=== PATIENT | female | born 1955 | race Caucasian/White ===

== ENCOUNTER 2017-12-24 09:31 | Day surgery (SDC) | payer BC ==
[2017-12-20 11:21] VITALS: BMI 34.9
[~2017-12-24 09:31] MED LIST: LACTATED RINGERS 1,000 ML IV SCH
--- NOTE | 2017-12-24 11:48 | CT ---
EXAMINATION TYPE: CT Chest ramila Ralph Protocol DATE OF EXAM: 12/24/2017 COMPARISON: NONE HISTORY: Bronchial navigation. CT DLP: 523 mGycm Automated exposure control for dose reduction was used. FINDINGS: Exam is performed for bronchial navigation. Subpleural nodularity and apical pleural thickening are noted. There are numerous bilateral pulmonary nodules ranging in size from 2 mm to 1 cm throughout both lungs in all lobes. Areas of subsegmental consolidation are seen along the periphery of both upper lobes. Prominence the right hilum could reflect a degree of adenopathy although exam is limited due to lack of contrast. More confluent areas of consolidation or mass are seen in the perihilar regions bilatera lly. No pleural effusion or pneumothorax. Atherosclerotic change aorta. Heterogeneous appearance to the thyroid. Hypertrophic and degenerative change of the spine noted. IMPRESSION: MULTIPLE BILATERAL PULMONARY NODULES THE LARGEST MEASURING 1 CM WITHIN THE LEFT UPPER LOBE. CORRELATE FOR HISTORY OF MALIGNANCY OR POSSIBLY SARCOIDOSIS. MORE CONFLUENT CONSOLIDATION IN THE PERIHILAR REG IONS ARE SEEN BILATERALLY MAY BE POSTINFLAMMATORY OR INFECTIOUS ALTHOUGH NEOPLASTIC PROCESS NOT EXCLU DED. THERE IS A LIMITED ASSESSMENT FOR ADENOPATHY DUE TO TECHNIQUE AND LACK OF CONTRAST.
[2017-12-24] MEDS ORDERED: PROPOFOL 10 MG/ML 20 ML VIAL IV ONE (12:27)
[2017-12-24] MEDS ORDERED: GLYCOPYRROLATE 0.2 MG/ML 2 ML VIAL ONE (12:27)
[2017-12-24] MEDS ORDERED: NEOSTIGMINE 1 MG/ML 10 ML VIAL ONE (12:27)
[2017-12-24] MEDS ORDERED: ROCURONIUM BROMIDE 10 MG/ML 10 ML VIAL IV ONE (12:27)
[2017-12-24] MEDS ORDERED: LIDOCAINE 1% INJ 10MG/ML (20 ML MDV) ONE (12:27)
[2017-12-24] MEDS ORDERED: fentaNYL (PF) 50 MCG/ML 2 ML AMP ONE (12:27)
[2017-12-24] MEDS ORDERED: MIDAZOLAM 2 MG/2 ML VIAL ONE (12:27)
[2017-12-24] MEDS ORDERED: SUCCINYLCHOLINE CHLORIDE 100 MG/5 ML SYR IV ONE (12:27)
--- NOTE | 2017-12-24 13:08 | P.PCN ---
Date of Procedure: 12/24/17 Preoperative Diagnosis: Bilateral pulmonary infiltrates Postoperative Diagnosis: Same Procedure(s) Performed: Navigation bronchoscopy, flexible bronchoscopy, bronchoalveolar lavage, transbronchial biopsy, transbronchial brushings Anesthesia: JUSTINA Surgeon: Anita Hogan Treating Machine Operator #1: Celena Montano Estimated Blood Loss (ml): 0 Pathology: other Condition: stable Disposition: same day Operative Findings: This procedure was done in the operating room under general anesthesia. The patient had a preoperative CAT scan of the chest for planning and mapping the bilateral pulmonary nodules. After the CAT scan was completed, the images were reviewed and was noted that the most of the abnormal changes are in the left upper lobe and lingular segments. Based on that, the appropriate mapping was done and all of this information was loaded into the [employer] navigational system. The patient was brought into the operating room. The patient was intubated by the usual fashion. HARNESS CUTTER was involved in a intubation. After achieving adequate analgesia and anesthesia, and after the patient being intubated, an adapter was attached to the orotracheal tube and as the patient being oxygenated and ventilated a flexible bronchoscopy was done. The airways but she was completed and the trachea including the distal trachea, bilateral mainstem bronchi, examination of the right side of the left side including the right upper lobe bronchus regular lobe bronchus and right lower lobe bronchus and the left upper lobe bronchus and the left lower bronchus along with various segments and subsegments were all within normal limits. No respiratory secretions encountered. Following that, appropriate calibration was done using the primary kala and the secondary kala and the left upper lobe and the right upper lobe as references. Using the navigational system, the Lexapro bronchoscope was guided into the left upper lobe and transbronchial biopsies of the left upper lobe anterior and apical segments were done. Also biopsies of the lingular segment was done. Following that, a transbronchial brushing of the lingular pulmonary treatments were done. A bronchial lavage was completed with total of 80 mL of fluid was infused and 25 mL's was suctioned back. The procedure was complicated without any complications. No bleeding encountered. The patient will be extubated and the patient be transferred recovery in stable condition. Chest x-ray be done to rule out pneumothorax and if things are stable and the patient was discharged home today to be followed up with me in the office to discuss the results.
[2017-12-24] MEDS ORDERED: IV FLUID CONTINUATION 1,000 ML IV ONE (13:18)
[2017-12-24 13:34] VITALS: TEMP 97.4
[2017-12-24 14:14] VITALS: RESP 16
--- NOTE | 2017-12-24 14:31 | XR ---
EXAMINATION TYPE: XR chest 1V DATE OF EXAM: 12/24/2017 COMPARISON: CT same day HISTORY: 62-year-old female post bronchoscopic lung biopsy TECHNIQUE: Single frontal view of the chest is obtained. FINDINGS: Heart upper limits of normal in size. Multifocal nodular and perihilar infiltrates are present throug hout correlating with findings on CT of the same day. No pneumothorax or pleural effusion. IMPRESSION: Multifocal nodular and perihilar infiltrates corresponding to findings on CT of the same day. No pneu mothorax or pleural effusion.
[2017-12-24 14:43] VITALS: PULSE 80
[2017-12-24 15:07] VITALS: BP 124/84
== END 2017-12-24 15:18 | disposition home or self-care (01) ==
LOC: ORWHC2ENDO 09:31
PROVIDERS: ATTEND Internal Medicine Critical Care Medicine
DX: J98.4 Other disorders of lung (principal); E78.5 Hyperlipidemia, unspecified; F41.8 Other specified anxiety disorders; M19.90 Unspecified osteoarthritis, unspecified site; E66.9 Obesity, unspecified; Z83.6 Family history of other diseases of the respiratory system; Z96.652 Presence of left artificial knee joint; Z87.01 Personal history of pneumonia (recurrent); Z79.82 Long term (current) use of aspirin; Z79.1 Long term (current) use of non-steroidal anti-inflammatories (NSAID); Z88.1 Allergy status to other antibiotic agents; Z79.899 Other long term (current) drug therapy; Z91.048 Other nonmedicinal substance allergy status; R91.8 Other nonspecific abnormal finding of lung field; G47.33 Obstructive sleep apnea (adult) (pediatric); Z79.890 Hormone replacement therapy
CPT/HCPCS: 87798 ×3; 87496; 87498; 87529; 88104; 88108; 88305; 87252; 87502; 87634; 87070; 87205; 87116; 87102; 87206; 71045; 71250; 31624; 31627; 31628; 31623; J2250; J2710; J2001; J3010; J0330; J2704; 31625

== ENCOUNTER → 2024-12-12 | Outpatient (CLI) | payer MEDICARE ==
[2024-12-12 08:20] LABS: African American GFR (CKD) 70 (>60 ml/min/1.73 sqM); Blood Urea Nitrogen 26 mg/dL (7-17); Non-African American GFR(CKD) 61 (>60 ml/min/1.73 sqM)
--- NOTE | 2024-12-12 17:55 | CT ---
EXAMINATION TYPE: CT chest w con DATE OF EXAM: 12/12/2024 8:40 AM COMPARISON: 11/26/2023 CLINICAL INDICATION: Female, 69 years old with history of R91.8 OTHER NONSPECIFIC ABNORMAL FINDING OF LUNG F; PHH, SARCOIDOSIS TECHNIQUE: Multiple axial images were obtained through the chest. Sagittal and coronal reformats were created for review. MIP was performed on a separate workstation. Contrast used:100 mL of Isovue 300 with IV Contrast (None if empty) Oral contrast used: (None if empty) CT DLP: 457.1 mGycm, Automated exposure control for dose reduction was used. FINDINGS: LUNGS/ PLEURA: Similar morphology of the scattered pulmonary nodules as well as regions somewhat stre aky conglomerate airspace opacities. The scattered pulmonary nodules have a predominantly perilymphatic distribution from the subpleural r egions. No new or enlarging pulmonary nodules identified. The morphology of the nodules in the lung parenchym al abnormalities are not significantly changed No evidence for acute airspace consolidation pneumotho rax or pleural effusion. AIRWAY: Patent and unremarkable. HEART: Size within normal limits. MEDIASTINUM: No gross evidence of adenopathy. VASCULATURE: No aortic aneurysm. MUSCULOSKELETAL: No acute osseous abnormalities SOFT TISSUES/LYMPH NODES: Unremarkable. LOWER NECK: No significant findings. UPPER ABDOMEN: Partially visualized right renal cysts IMPRESSION: Stable appearing scattered perilymphatic nodules and areas of consolidation within the lungs, consist ent with history of sarcoidosis. [facility], , 12/12/2024 5:52 PM
== END | disposition home or self-care (01) ==
LOC: RADCTMAIN 07:35
PROVIDERS: ATTEND Internal Medicine Critical Care Medicine
DX: R91.8 Other nonspecific abnormal finding of lung field (principal)
CPT/HCPCS: 82565; 84520; 71260; 36415; Q9967